=== PATIENT | female | born 1980 | race Caucasian/White ===

== ENCOUNTER 2018-02-26 13:20 | Emergency (ER) | payer OTHER ==
[2018-02-26] MEDS ORDERED: Ondansetron PF 4 MG/2 ML Vial ONE (14:01)
[2018-02-26 14:07] LABS: #Basophils 0.1 thou/uL (0.0-0.2); #Lymphocytes 0.9 thou/uL (1.20-3.40); #Monocytes 0.9 thou/uL (0.11-0.59); #Neutrophils 12.4 thou/uL (1.40-6.50); %Basophils 0.7 % (0.0-1.0); %Eosinophils 0.1 % (0.0-10.0); %Lymphocytes 6.2 % (21.0-51.0); %Monocytes 6.6 % (0.0-10.0); %Neutrophils 86.4 % (42.0-75.0); Hemoglobin 13.7 g/dL (12.0-16.0); Mean Corpuscular HGB CONC 33.9 g/dL (32.0-36.0); Mean Corpuscular Hemoglobin 29.9 pg (27.0-31.0); Mean Corpuscular Volume 88.2 fL (78.0-98.0); Mean Platelet Volume 9.3 fL (7.4-10.4); Platelet Count 256 thou/uL (130-400); RBC Distribution Width 11.5 % (11.5-14.5); Red Blood Cell (RBC) Count 4.58 mill/uL (4.20-5.40); White Blood Cell (WBC) Count 14.4 thou/uL (4.8-10.8)
[2018-02-26 14:10] LABS: BHCG - Serum Negative (NEGATIVE); Pregs Control Background? CLEAR/WHITE (CLR/WHITE); Pregs Control Bar Appear? YES (CONTROL BAR)
[2018-02-26 14:20] LABS: ALT (SGPT) 21 U/L (8-55); AST (SGOT) 21 U/L (5-34); Alkaline Phosphatase 64 U/L (40-150); Anion Gap 14 mmol/L (10-20); BUN (Urea Nitrogen) 10 mg/dL (7.0-18.7); Bilirubin, Total 0.7 mg/dL (0.2-1.2); Calc. Creatinine Clearance 0 mL/min (70-130); Calcium 9.2 mg/dL (7.8-10.44); Carbon Dioxide 22 mmol/L (22-29); Chloride 103 mmol/L (98-107); Estimated GFR-MDRD 74; Globulin 3.2 g/dL (2.4-3.5); Glucose 107 mg/dL (70-105); Lipase 15 U/L (8-78); Protein, Total 7.2 g/dL (6.0-8.3); Sodium 135 mmol/L (136-145)
[2018-02-26 14:21] LABS: CKMB 0.5 ng/mL (0-6.6); Troponin I Less than 0.010 ng/mL (< 0.028)
--- NOTE | 2018-02-26 15:36 | ULT ---
ULTRASOUND ABDOMEN LIMITED: (RIGHT UPPER QUADRANT) Date: 02/26/18 HISTORY: 38-year-old female with right upper quadrant abdominal pain. FINDINGS: Gallbladder: Normal wall thickness, with no evidence of gallstones, sludge, or pericholecystic fluid. No sonographic Gale's sign. Common duct: 3 mm. Liver: Normal size and echogenicity. Pancreas: Distal body and tail are completely obscured by shadowing from bowel gas. Head and proximal body are diffusely hypoechoic. This is nonspecific. Right kidney: No hydronephrosis. IMPRESSION: 1. No evidence of cholelithiasis, acute cholecystitis, or biliary obstruction. 2. Nonspecific finding of diffusely hypoechoic pancreas. Recommend correlation with serum lipase and amylase. [facility] POS: [facility]
[2018-02-26] MEDS ORDERED: Acetaminophen 500 MG TAB ONE (15:38)
[2018-02-26 15:40] LABS: Bilirubin Negative (Negative); Blood, Urine Trace (Negative); Clarity Slightly Cloudy (Clear); Glucose, Urine (Dipstick) Negative (Negative); Leukocyte Trace (Negative); Nitrite Negative (Negative); Protein, Urine (Dipstick) Negative (Neg-Trace); pH, Urine 7.5 (5.0-9.0)
[2018-02-26 15:43] LABS: Bacteria/HPF 1+ HPF (None Seen); RBC/HPF 0-3 HPF (0-3)
[2018-02-26 15:44] LABS: Other Casts/LPF 0-3 FINELY GRAN LPF (0-3 Hyaline); Squamous Epithelial 0-3 HPF (0-3)
--- NOTE | 2018-02-26 18:36 | CT ---
CT ABDOMEN AND PELVIS: Date: 02-26-18 Comparison: None. History: Abdominal pain, leukocytosis. Technique: Serial axial CT imaging at 5 mm intervals from lung bases through pubic symphysis with IV and oral contrast. Coronal reformatted imaging obtained. FINDINGS: Imaged lung bases unremarkable. No free intraperitoneal air or fluid. Liver, gallbladder, spleen, pancreas, adrenal glands, and kidneys demonstrate no acute findings. Ther e are a few tiny foci of hypodensity within the right renal parenchyma, too small to characterize. There is significant stool seen throughout the colon. There is no evidence for bowel inflammatory change or bowel obstruction. The appendix appears within normal limits. The vascular structures of the abdomen/pelvis appear patent. No lymphadenopathy is noted in the abdom en/pelvis. The osseous structures demonstrate no acute findings. IMPRESSION: No acute findings seen within the abdomen/pelvis. POS: [facility]
== END 2018-02-26 20:25 | disposition home or self-care (01) ==
LOC: SCSER 13:20
DX: K59.00 Constipation, unspecified (principal); F32.9 Major depressive disorder, single episode, unspecified; Z79.899 Other long term (current) drug therapy
CPT/HCPCS: 74177; 76705; 80053; 81003; 81015; 82553; 83605; 83690; 84484; 84703; 85025; 87086; 93005; 96361; 96365; 96366; 96375; J1956; J2270; J2405